=== PATIENT | female | born 1950 | race Caucasian/White ===

== ENCOUNTER → 2016-12-17 | Outpatient (CLI) | payer OTHER ==
[~2016-12-17] MED LIST: ALBUTEROL17 GM INH; ASPIRIN81 M2 PO; BUSPAR PO; CALCIUM + D 6001 TA1 PO; CELEXA PO; CENTRUM PO; FISH OIL CONCET1 CAP PO; FOLIC ACID PO; LORATADINE PO; LUTEIN40 MG PO; NAPROXEN PO; POTASSIUM99 M3 PO; VICODIN PO; VOL-CARE RX TA1 EACH PO
--- NOTE | ~2016-12-17 | BD1 ---
[facility] A Service of [facility] RADIOLOGY TEXT RESULTS PATIENT: JESSE WOLF LOCATION: [facility] : 46 UNIT #: [id number] AGE: [address]: Qian Malik MD SEX: F ORDER DR: [id number] [facility] [address] [place], [place] [address] [id number] O MR#: [id number] Acc #: [id number] NAME: JESSE WOLF : 1950 SEX: F STUDY DATE/TIME: 12/17/2016 11:48 UNIT: [facility] ROOM: STUDY DESCRIPTION: BD Dexa Bone Dens 1+ Site Attending Physician: Qian Malik M.D. Ordering Physician: Qian Malik M.D. Primary Care Physician: Qian Malik M.D. MEDICAL IMAGING REPORT This report is preliminary unless electronic signature is present EXAM DXA scan, 12/17/2016 HISTORY Status post menopause with no hormone replacement therapy. Osteopenia. Family history of breast carcinoma in mother, grandmother and sisters. Smoking history. FINDINGS Bone mineral density in the lumbar spine from L1-L4 was 1.017 g/cm2 which is 0.3 standard deviations below the mean when compared to the young adult reference population which is within the range of normal. This is 1.8 standard deviations above the mean when compared to the age-matched population. Compared with 11/16/2013 there has been a decrease in bone mineral density in the lumbar spine of 2.8%. Bone mineral density in the left femoral neck was 0.53 g/cm2 which is 2.9 standard deviations below the mean when compared to young adult reference population which is characteristic of osteoporosis. This is 1.1 standard deviations below the mean when compared to the age-matched population. Compared with 11/16/2013, there has been a decrease in bone mineral density in the left hip of 2.1%. IMPRESSION Bone mineral density in the lumbar spine within the range of normal and within the left hip characteristic of osteoporosis. Compared with 11/16/2013, there has been a decrease in bone mineral density in the lumbar spine and the left hip. Dictated by... Jonah Malone M.D. [facility] A Service of [facility] RADIOLOGY TEXT RESULTS PATIENT: JESSE WOLF LOCATION: [facility] : 46 UNIT #: [id number] AGE: [address]: Qian Malik MD SEX: F ORDER DR: THIS IS AN ELECTRONICALLY VERIFIED REPORT Jonah Malone M.D. at 12/18/2016 2:27 PM KRT/damaris TD: 12/17/2016 22:12 JOB #: [id number] MEDICAL IMAGING REPORT Page 1 of 1 COPY
== END | disposition home or self-care (01) ==
LOC: CWCC 11:23
DX: Z13.820 Encounter for screening for osteoporosis (principal); N95.9 Unspecified menopausal and perimenopausal disorder
CPT/HCPCS: 77080